=== PATIENT | male | born 1955 | race Two or more races ===

== ENCOUNTER 2019-04-12 05:28 | Inpatient (IN) | payer MEDICAID, OTHER ==
[2019-04-12] VITALS (38 sets, daily range): BP systolic 77–131; BP diastolic 46–76
[~2019-04-12] VITALS: Ht 177.8 cm; Wt 93.0 kg
--- NOTE | 2019-04-12 05:29 | NUR ---
BIBA FOR ALOC, PT NON RESPONSIVE. NOT BREATHING. ON AMBU BAG WHIE RESCUER BAGGING THE PT.
--- NOTE | 2019-04-12 05:37 | NUR ---
pt intubated successfully by dr warner. size: 7.5, 25 cm at lip
[2019-04-12] MEDS ORDERED: PROPOFOL 100 ML ONE (05:40)
--- NOTE | 2019-04-12 05:45 | NUR ---
VERBAL ORDER FOR PROPOFOL TO TITRATE PER PROTOCOL FROM DR PARKS. NOTED
[2019-04-12] MEDS: PROPOFOL 100 ML IV PRN ×3 (05:47→09:15)
--- NOTE | 2019-04-12 05:47 | NUR ---
PT STARTED ON PROPOFOL DRIP ORDERED BY DR. PARKS . STARTED AT 10MCG/KG/MIN BP: 174/102, HR:114,
--- NOTE | 2019-04-12 05:50 | NUR ---
PT ARRIVED TO ER, UNRESPONSIVE AND PT WAS ORALLY INTUBATED WITH A 7.5MM ETT @ 25CM LIP LINE... BILATERAL BREATH SOUNDS PRESENT, SYMMETRICAL CHEST RISE ALSO PRESENT, WITH GOOD COLOR CHANGE. PT WAS THEN PLACED ON MECH VECH R 18 VT 550 100%O2 5 PEEP. PT TOLERATING SETTING WELL, AMBU-BAG AT BEDSIDE, ALARMS ARE SET AND AUDIBLE, WITH VENT PLUGGED INTO REDOUT. PT TOLERATING SETTINGS WELL Addendum: 04/12/19 at 0600 by JA ASHTON RT Amended: Links added.
[2019-04-12] MEDS ORDERED: ETOMIDATE 2 MG/ML VIAL IV ONE ×2 (06:00→11:58)
[2019-04-12] MEDS ORDERED: PROPOFOL 100 ML IV PRN (06:00)
[2019-04-12] MEDS ORDERED: NALOXONE PREFILLED SYRINGE 2 MG/2 ML SYRINGE IV ONE (06:00)
[2019-04-12] MEDS ORDERED: IV NS 0.9% 1,000 ML BAG IV ONE (06:00)
--- NOTE | 2019-04-12 06:00 | NUR ---
urine collected and sent to the lab
[2019-04-12 06:06] LABS: BASOPHILS # (AUTO) 0.1 /CMM (0.0-0.2); LYMPHOCYTES # (AUTO) 1.8 /CMM (0.8-4.8); MONOCYTES # (AUTO) 2.3 /CMM (0.1-1.30)
[2019-04-12 06:09] LABS: APPEARANCE,URINE Clear (CLEAR); BILIRUBIN,URINE MODERATE (NEGATIVE); BLOOD, URINE Small Ery/uL (NEGATIVE); COLOR,URINE Dark (YELLOW); KETONES,URINE Trace (NEGATIVE); LEUKOCYTE ESTERASE ,URINE Negative (NEGATIVE); NITRITE, URINE Negative (NEGATIVE); PROTEIN,URINE 100 mg/dl (NEGATIVE); UGLUCOSE 100 MG/DL mg/dL (NEGATIVE)
[2019-04-12 06:14] LABS: BASOPHILS % (AUTO) 0.3 % (0.0-2.0); HEMATOCRIT 53 % (39-51); HEMOGLOBIN 18.2 g/dL (13.5-17.5); MEAN CORPUSCULAR HGB CONC 35 g/dl (31.0-36.0); MEAN CORPUSCULAR VOLUME 89 fL (80-96); MONOCYTES % (AUTO) 9.1 % (2.0-12.0); NEUTROPHILS # (AUTO) 21.6 /CMM (1.8-8.9); NEUTROPHILS % (AUTO) 83.6 % (43.0-81.0); PLATELET COUNT (AUTO) 376 /CMM (150-450); WHITE BLOOD COUNT (AUTO) 25.8 K/uL (4.3-11.0)
[2019-04-12 06:17] LABS: CALCIUM, SERUM 10.1 mg/dL (8.5-10.1); CARBON DIOXIDE 22 mmol/L (21-32); CHLORIDE 105 mmol/L (98-107); GLUCOSE 225 mg/dL (74-106); POTASSIUM 3.8 mmol/L (3.5-5.1); SODIUM SERUM 147 mmol/L (136-145); UREA NITROGEN, BLOOD 36 mg/dL (7-18)
[2019-04-12 06:18] LABS: ABG BASE EXCESS -6.7 mmol/L; ABG OXYGEN SATURATION 99.3 % (92.0-98.5); ABG PCO2 44.9 mmHg (35.0-45.0); ABG PH 7.271 (7.350-7.450); ABG PO2 543.4 mmHg (75.0-100.0); AaDO2 124.7 mmHg; COHb 0.2 % (0.5-1.5); MetHb 0.7 % (0.0-1.5); O2Hb 98.4 % (94.0-97.0); PEEP,BG 5 cm H2O; SITE, ABG Right Radial; VT, ABG 550 mL
--- NOTE | 2019-04-12 06:22 | NUR ---
ABG RESULTS NOT TRANSFERRING DUE TO ERROR IN BEHALF OF ADMITTING ABG RESULTS ARE FOLLOWED: PH =7.27 PCO2 =44.9 PO2 =543.4 HCO3 =20.2 ON THE FOLLOWING MECH VENT SETTINGS OF: AC R 18 VT 550 O2 100% PEEP +5
[2019-04-12 06:23] LABS: ALANINE AMINOTRANSFERASE 29 U/L (12-78); ALCOHOL, BLOOD < 3 mg/dL (0-0); ALKALINE PHOSPHATASE 84 U/L (46-116); ASPARTATE AMINOTRANSFERASE 50 U/L (15-37); BILIRUBIN,DIRECT 0.2 mg/dL (0.0-0.2); BILIRUBIN,TOTAL 0.8 mg/dL (0.2-1.0); SALICYLATE 2.8 mg/dL (2.8-20.0); TOTAL PROTEIN, SERUM 8.8 g/dL (6.4-8.2)
[2019-04-12] MEDS ORDERED: NALOXONE PREFILLED SYRINGE 2 MG/2 ML SYRINGE ONE (06:29)
[2019-04-12] MEDS ORDERED: PIPERACILLIN /TAZOBACTAM 3.375 G in IV D5W 50 ML IV ONE (06:30)
--- NOTE | 2019-04-12 06:35 | NUR ---
RECTAL TEMP: 99.2. AWARE W/ NNO
--- NOTE | 2019-04-12 06:51 | NUR ---
PT IN BED . INTUBATED . ON PROPOFOL DRIP. REMAINED COMFORTABLE. VSS. WILL CONT TO MONITOR.
--- NOTE | 2019-04-12 06:54 | NUR ---
NURS SUP CALLED FOR ICU BED
[2019-04-12] MEDS ORDERED: IV NS 0.9% 1,000 ML IV PRN ×2 (06:56→09:00)
[2019-04-12] MEDS ORDERED: ONDANSETRON HCL/PF 4 MG/2 ML VIAL IVP PRN (07:00)
[2019-04-12] MEDS ORDERED: HYDROMORPHONE INJ 2 MG/ML DISP.SYRIN IV PRN (07:00)
[2019-04-12 07:06] LABS: BACTERIA,URINE None seen /HPF (None Seen); SQUAMOUS EPITHELIAL CELL,UR Few /HPF (None Seen); WBC,URINE NONE SEEN /HPF (0-3)
[2019-04-12] MEDS ORDERED: METF-440 PO (07:18)
[2019-04-12] MEDS ORDERED: LISI-607 PO (07:18)
[2019-04-12] MEDS ORDERED: ALBUTEROL FS 2.5 MG/3 ML VIAL.NEB NEB PRN (07:30)
[2019-04-12] MEDS ORDERED: ASPIRIN 300 MG/SUPP.RECT RC ONE (07:30)
--- NOTE | 2019-04-12 07:36 | NUR ---
RECEIVED REPORT FROM JUN ANDERSON, PT IS AAOX0, ON MECH VENT, WITH ONGOING PROPOFOL TITRATE TO EFFECT, V/S STABLE, WILL CONTINUE TO MONITOR, AWAITING BED FOR PT TRANSFER TO FLOOR.
--- NOTE | 2019-04-12 07:53 | NUR ---
room 252 icu
--- NOTE | 2019-04-12 08:30 | NUR ---
ICU/RN: ADMISSION NOTE RECEIVED REPORT FROM ER NURSE RAMIRO. PT TRANSPORTED VIA GURNEY TO ROOM 252. UNABLE TO ASSESS NEURO STATUS, PT SEDATED. PT INTUBATED, ETT 7.5 25 CM AT THE LIP, ON VENT SETTINGS ORDERED BY . PIV PATENT AND INTACT, DIPRIVAN INFUSING AT 10MCG/KG/MIN. PT SINUS ON TELE. NG TUBE IN PLACE. WILL CONTINUE LIS. CHUNG CATH IN PLACE, DRAINING SHEBA URINE. PT CURRENTLY NPO. ORDERS RECEIVED FOR PICC LINE. AWAITING PLACEMENT. PT ON BILATERAL WRIST RESTRAINTS, ASSESSED PER PROTOCOL. SEIZURE PRECAUTION. ALL NEEDS WILL BE ATTNEDE TO, SAFETY MEASURES TAKEN, BED IN LOW POSITION, SIDE RAILS UP, CALL LIGHT WITHIN REACH. WILL CONTINUE CARE. POSSIBLE SUICIDE RISK, WILL MONITOR CLOSELY.
--- NOTE | 2019-04-12 08:35 | NUR ---
REPORT GIVEN TO RN RP FOR KYREE, WITH ONGOING IV PROPOFOL TITRATE TO EFFECT.
[2019-04-12] MEDS ORDERED: LORAZEPAM INJ 2 MG/ML VIAL IV STA (08:40)
--- NOTE | 2019-04-12 08:43 | NUR ---
LACTIC ACID RESULT 7.0, RELAYED TO ICU NURSE.
[2019-04-12 09:00] LABS: LYMPHOCYTES % (MANUAL) 5 % (16-48); MONOCYTES % (MANUAL) 9 % (0-11.0); NEUTROPHILS % (MANUAL) 86 (42-76)
[2019-04-12] MEDS ORDERED: ASPIRIN 600 MG/SUPP.RECT RC ONE (09:00)
[2019-04-12] MEDS ORDERED: VANCOMYCIN 1.25 GM in IV D5W 500 ML IV SCH ×4 (09:00)
[2019-04-12] MEDS ORDERED: HEPARIN SODIUM, PORCINE 5000 UNITS/1 ML VIAL SQ SCH (09:00)
[2019-04-12] MEDS ORDERED: IBUP-1955 PO (09:37)
[2019-04-12] MEDS ORDERED: BUPR-51 PO (09:37)
[2019-04-12] MEDS ORDERED: VENL150C58 PO (09:37)
[2019-04-12] MEDS ORDERED: BACL10TA PO (09:37)
[2019-04-12] MEDS ORDERED: LAMO200T PO (09:37)
--- NOTE | 2019-04-12 09:45 | NUR ---
ICU/RN: PT HAD SEIZURE. ONE TIME ATIVAN ADMINISTERED, WITNESSES BY NEURO ENTREPRENEURIAL FINANCE PROFESSOR. SEIZURE PRECAUTIONS TAKEN.
[2019-04-12] MEDS: FAMOTIDINE/PF INJ 20 MG/2 ML VIAL IV SCH ×2 (10:06→22:01)
[2019-04-12 10:15] LABS: ACETAMINOPHEN 0 ug/ml (10-30)
[2019-04-12] MEDS ORDERED: LEVETIRACETAM (500MG) 1,000 MG in IV NS 0.9% 100 ML IV ONE (11:00)
[2019-04-12] MEDS: SODIUM ACETATE IV PRN ×2 (11:01→19:41)
[2019-04-12] MEDS: D5 IV PRN ×2 (11:01→19:41)
[2019-04-12] MEDS: NACL IV PRN ×2 (11:01→19:41)
--- NOTE | 2019-04-12 11:22 | NUR ---
ICU/RN: REPORT ENDORSED TO JUN PURVIS. CT SCAN PENDING. PT MUST GO WHEN STABLE. ALL NEEDS ATTENDED TO, SAFETY MEASURES TAKEN, BED IN LOW POSITION, SIDE RAILS UP, SEIZURE PRECAUTIONS TAKEN.
[2019-04-12] MEDS ORDERED: SUCCINYLCHOLINE CHLORIDE 20 MG/ML VIAL IV ONE (11:58)
--- NOTE | 2019-04-12 12:30 | NUR ---
FAMILY AT BEDSIDE. PATIENT LUCIAN WEBB [phone] AND SISTER IN LAW RIZWANA LOZADA [phone] Addendum: 04/12/19 at 1727 by YANIV HERNANDEZ RN PER PATIENT LUCIAN WEBB OKAY FOR MEDICAL STAFF TO GIVE INFORMATION AND SPEAK WITH HER SISTER RIZWANA LOZADA WITH ANY AND ALL UPDATES ON PATIENT CONDITION.
--- NOTE | 2019-04-12 12:45 | NUR ---
NOTIFIED AGUILAR PER POISON CONTROL THEY ARE RECOMMENDING Q1H ACCUCHECKS DUE TO PATIENT POSSIBILITY OF TAKING GLIMIPERIDE FOR DIABETES AND MAY HAVE REFRACTORY HYPOGLYCEMIA. PER ADJUSTER ARBITRATOR OK TO ORDER Q1H ACCUCHECKS. REGENERATOR OPERATOR AT BEDSIDE.
[2019-04-12] MEDS: PIPERACILLIN /TAZOBACTAM 3.375 G in IV D5W 100 ML IV SCH ×2 (12:51→20:49)
[2019-04-12] MEDS ORDERED: PIPERACILLIN /TAZOBACTAM 3.375 G in IV D5W 50 ML IV SCH (13:00)
[2019-04-12] MEDS: BLOOD SUGAR DIAGNOSTIC 1 EACH STRIP IN SCH ×11 (13:01→23:54)
[2019-04-12] MEDS ORDERED: FEE PK DOSING 1 MIN EA MC ONE (13:34)
--- NOTE | 2019-04-12 15:00 | NUR ---
PER DR PINEDA PLEASE REORDER EEG FOR TOMORROW AND UP THE DOSAGE OF KEPPRA TO 1000MG Q12HRS.
--- NOTE | 2019-04-12 17:32 | NUR ---
PER AND PATIENT SISTER IN LAW PATIENT TEXTED HIS AT 330PM ON 04/11 AND TOLD HER HE TOOK THE MEDICATIONS AND STARTED GIVING HER LOCATIONS OF HIS PERSONAL PROPERTY AND PASSCODES TO HIS EMAILS ECT. PER PATIENT HAS A HISTORY OF STATING SUICIDAL IDEATION. CALLED AT 5PM WHERE PATIENT LIVES AND HAD SOMEONE CHECK ON HIM AND "HE WAS SLEEPING" SO SHE THOUGHT HE WAS OKAY. THIS AM WHEN PATIENT DID NOT WAKE UP 911 WAS CALLED.
--- NOTE | 2019-04-12 17:53 | NUR ---
PER POISON CONTROL PLEASE MONITOR PATIENT LIVER FX WITH CMP AND TOX LEVEL. PENDING UPDATED LABS
[2019-04-12 18:46] LABS: HEMOGLOBIN 14.1 g/dL (13.5-17.5)
--- NOTE | 2019-04-12 18:50 | NUR ---
PATIENT FEELS HOT TO TOUCH. CORE TEMP MONITOR APPLIED AND READS 100.6 COOLING MEASURES INITIATED. ICE PACKS APPLIED. ROOM COOLED. WILL MONITOR
--- NOTE | 2019-04-12 19:25 | NUR ---
CARE ENDORSED TO JUN ORLANDO FOR KYREE. PATIENT TOLERATING VENT. NO NECESSITY FOR RESTRAINTS PATIENT NON RESPONSIVE. DR PINEDA AWARE AND PENDING ANOTHER EEG TOMORROW MORNING. PATIENT ON COOLING MEASURES FOR 100.6 TEMP. IV SITE C/D/I/P AND IVF PER MD ORDER. PATIENT NGT TO LIS AND WITHOUT S.S BLEEDING; ONLY GREEN OUTPUT NOTED. SKIN, SAFETY, ASPIRATION PRECAUTIONS IN PLACE AND MONITORED.
--- NOTE | 2019-04-12 19:59 | NUR ---
DESKTOP SPECIALIST. INITIAL ASSESSMENT. RECEIVED THE PT REST ON THE BED. ORALLY INTUBATED, WITH OUT DIPRIVAN. PT IS NOT RESPONDING.OBTUNDED. ETT 7.5CM,LIP 25CM,AC 18,TV 550,FIO2 50%. SAT 98%. NO ACUTE DISTRESS NOTED. FOREST PRODUCTS TEACHER SHOWING NSR. IV RT UPPER ARM PICC LINE .IVF D5 1/2NS IN SODIUM ACCECITE 50MEQ @ 125ML/H. NGT INTACT. LOW INTERMITTENT SUCTION
[2019-04-12 20:12] LABS: ALBUMIN 3.6 g/dL (3.4-5.0); BILIRUBIN,TOTAL 0.7 mg/dL (0.2-1.0); CREATININE 1.7 mg/dL (0.6-1.3); POTASSIUM 3.6 mmol/L (3.5-5.1); TOTAL PROTEIN, SERUM 6.7 g/dL (6.4-8.2)
[2019-04-12] MEDS ORDERED: LEVETIRACETAM (500MG) 1,000 MG in IV NS 0.9% 100 ML IV SCH (21:00)
[2019-04-12] MEDS ORDERED: LEVETIRACETAM (500MG) 500 MG in IV NS 0.9% 100 ML IV SCH (21:00)
--- NOTE | 2019-04-12 22:25 | NUR ---
FINISHING AND SHIPPING SUPERVISOR.PT DO"NT HAVE GAG REFLEX AND PAIN FULL STIMULI
[2019-04-13] VITALS (41 sets, daily range): BP systolic 129–171; BP diastolic 65–91
[2019-04-13] MEDS: BLOOD SUGAR DIAGNOSTIC 1 EACH STRIP IN SCH ×11 (00:52→18:00)
[2019-04-13] MEDS: SODIUM ACETATE IV PRN (03:03)
[2019-04-13] MEDS: NACL IV PRN (03:03)
[2019-04-13] MEDS: D5 IV PRN (03:03)
--- NOTE | 2019-04-13 03:08 | NUR ---
horticultural specialty grower. am care. oral care, bed bath given. linen changed. remaining same ivf running, ngt low intermittent suction, hob elevated, npo, temperature is 100. fc patent. urine draining. turn and reposition q2h. will continue to monitor vitals.
[2019-04-13] MEDS: PIPERACILLIN /TAZOBACTAM 3.375 G in IV D5W 100 ML IV SCH ×3 (03:22→20:40)
[2019-04-13 04:39] LABS: BASOPHILS % (AUTO) 0.2 % (0.0-2.0); HEMATOCRIT 39 % (39-51); HEMOGLOBIN 13.8 g/dL (13.5-17.5); LYMPHOCYTES # (AUTO) 0.8 /CMM (0.8-4.8); LYMPHOCYTES % (AUTO) 8.6 % (20.0-44.0); MEAN CORPUSCULAR HGB CONC 36 g/dl (31.0-36.0); MEAN CORPUSCULAR VOLUME 89 fL (80-96); MONOCYTES # (AUTO) 0.9 /CMM (0.1-1.30); MONOCYTES % (AUTO) 8.9 % (2.0-12.0); NEUTROPHILS # (AUTO) 7.9 /CMM (1.8-8.9); NEUTROPHILS % (AUTO) 82.3 % (43.0-81.0); PLATELET COUNT (AUTO) 205 /CMM (150-450); RED BLOOD CELL COUNT(AUTO) 4.38 MIL/uL (4.5-6.0); WHITE BLOOD COUNT (AUTO) 9.6 K/uL (4.3-11.0)
[2019-04-13 04:56] LABS: ALBUMIN 3.3 g/dL (3.4-5.0); BILIRUBIN,TOTAL 0.6 mg/dL (0.2-1.0); CREATININE 1.2 mg/dL (0.6-1.3); MAGNESIUM 1.8 mg/dL (1.8-2.4); PHOSPHORUS 2.3 mg/dL (2.5-4.9); POTASSIUM 3.5 mmol/L (3.5-5.1); TOTAL PROTEIN, SERUM 6.5 g/dL (6.4-8.2)
[2019-04-13] MEDS: LORAZEPAM INJ 2 MG/ML VIAL IV PRN ×3 (07:03→15:43)
--- NOTE | 2019-04-13 07:03 | NUR ---
agricultural science professor. pt noted seizure less than 2 minutes. ativan given per ordered.
--- NOTE | 2019-04-13 07:25 | NUR ---
received report on patient from JUN Zuniga. patient just had a tonic clonic seizure lasting under 2 minutes with prn ativan given as ordered; message left to dr casillas. Patient tolerating vent without distress. IVF per MD order and iv sites c/d/i/p. PICC line with good blood return. patient core temp continues 100.0-100.5 and is actively sweating. cooling measures initiated and fan placed in room. dvt pumps in place. bp stable. patient continues with pupil reflexes positive however no gag, cough reflexes, no movement to painful stimuli. skin, safety, aspiration precautions in place and monitoring
--- NOTE | 2019-04-13 07:30 | NUR ---
per report patient had a breakthrough seizure lasting just under 2 minutes and 2 mg ativan as ordered given and per report creative technologist unable to complete eeg until 6pm today. Notified dr Coleman. per MD please increase Keppra IV to 1500 mg q12h and md would like to transfer patient to higher level of care for continuous EEG monitoring.
[2019-04-13] MEDS ORDERED: phenytoin SODIUM IV 1,000 MG in IV NS 0.9% 100 ML IV ONE (08:00)
[2019-04-13] MEDS: LEVETIRACETAM (500MG) 1,500 MG in IV NS 0.9% 100 ML IV SCH ×2 (08:04→20:40)
[2019-04-13] MEDS: FAMOTIDINE/PF INJ 20 MG/2 ML VIAL IV SCH ×2 (08:17→20:39)
[2019-04-13 08:44] LABS: ABG BASE EXCESS 1.8 mmol/L; ABG OXYGEN SATURATION 98.7 % (92.0-98.5); ABG PCO2 40.7 mmHg (35.0-45.0); ABG PH 7.428 (7.350-7.450); ABG PO2 187.6 mmHg (75.0-100.0); AaDO2 123.1 mmHg; COHb 0.3 % (0.5-1.5); MetHb 0.9 % (0.0-1.5); O2Hb 97.5 % (94.0-97.0); SITE, ABG Left Radial; VENT MODE, BG AC 18 550 50%
--- NOTE | 2019-04-13 08:59 | NUR ---
0830: PATIENT IS NOW BREATHING OVER VENT 25 RR/ MIN. CHECKED PATIENT PUPILS; PERLLA, PATIENT NOW HAS A POSITIVE GAG AND COUGH REFLEX. BITING ON ETT; BITE BLOCK PLACED BY RT, PATIENT MOVING ALL EXTREMITIES AND GRIMACING TO PAIN. NO FOLLOWING OF COMMANDS AND PURPOSEFULLY CLOSING EYES SHUT. 0856: PATIENT NOTED WITH BLE TWITCHING AND CLENCHING OF HANDS/EXTENSION OF BUE. 2MG ATIVAN GIVEN FOR SEIZURE LASTING 45 SEC[address]DS PER ORDER OF DR PINEDA. PATIENT BEGAN SEIZING DURING ROUNDING OF DR PINEDA AND CEASED IMMEDIATELY AFTER ATIVAN ADMIN. PER DR PINEDA PLEASE DC DIPRIVAN AND IF PATIENT REQUIRES SEDATION START VERSED GTT FOR SEDATION. 0859: DR PINEDA AT BEDSIDE UPDATING PATIENT THERESE ZAMORANO. Addendum: 04/13/19 at 0949 by YANIV HERNANDEZ RN ok to dc low intermittent suction per dr zheng. no s/s bleeding. gastric fluid output is green
[2019-04-13] MEDS ORDERED: DEXTROSE 50%-WATER 50 ML DISP.SYRIN IV PRN (09:00)
--- NOTE | 2019-04-13 09:00 | NUR ---
restraints applied as patient able to move bilateral upper extremities and chief embalmer strength strong. bilateral wrist restraints applied for prevention of ett removal. son at bedside educated and agreeable.
--- NOTE | 2019-04-13 09:26 | NUR ---
PER DR PINEDA OK TO HOLD OFF ON TRANSFER PATIENT WITH SLIGHT IMPROVEMENT; PENDING ANOTHER EEG TODAY
[2019-04-13] MEDS: IV D5/0.45 NACL 1,000 ML IV PRN ×2 (11:15→21:47)
[2019-04-13] MEDS: INSULIN REGULAR, HUMAN 100 UNIT/ML 3 ML VIAL SQ PRN ×2 (11:41→18:06)
[2019-04-13] MEDS: PHENYTOIN SODIUM IV 50 MG/ML VIAL IV SCH ×2 (13:20→20:39)
[2019-04-13] MEDS ORDERED: POTASSIUM PHOSPHATE MM 7.5 MMOL in IV D5W 100 ML IV SCH (14:00)
--- NOTE | 2019-04-13 15:50 | NUR ---
1525: dev poison control called to follow up on patient recommending cmp and ck lab checks now. notified dr zheng and kim to order per md. dr casillas contacted and notified patient with another witnessed seizure lasting 3 minute 30 seconds at 1515. 2 mg ivp ativan given per order and patient ceased seizure activity. per dr casillas give 100mg dilantin ivp now 1545: patient with another witnessed seizure lasting 4 minutes. another 2mg ivp ativan given per order.
[2019-04-13] MEDS ORDERED: NS 0.9% IV ONE ×4 (16:00)
[2019-04-13] MEDS ORDERED: PHENYTOIN SODIUM IV ONE ×4 (16:00)
[2019-04-13] MEDS ORDERED: PHENYTOIN SODIUM IV 50 MG/ML VIAL IV ONE (16:00)
--- NOTE | 2019-04-13 16:17 | NUR ---
notified dr lema patient with another seizure and poison control recommending benzos for medication induced seizures.
--- NOTE | 2019-04-13 16:23 | NUR ---
per dr casillas please start patient on diprivan for breakthrough seizures. ok to start now before eeg Addendum: 04/13/19 at 1642 by YANIV HERNANDEZ RN per start diprivan to sedate patient to stop breakthrough seizures
[2019-04-13] MEDS: PROPOFOL 100 ML IV PRN (16:26)
[2019-04-13 16:37] LABS: ALBUMIN 3.3 g/dL (3.4-5.0); BILIRUBIN,TOTAL 0.6 mg/dL (0.2-1.0); CALCIUM, SERUM 8.4 mg/dL (8.5-10.1); POTASSIUM 3.2 mmol/L (3.5-5.1); TOTAL PROTEIN, SERUM 6.5 g/dL (6.4-8.2)
--- NOTE | 2019-04-13 16:42 | NUR ---
diprivan started per dr casillas order to sedate patient s/t continued breakthrough seizures. patient grimaces to light pain. and withdraws from painful stimuli.
--- NOTE | 2019-04-13 17:45 | NUR ---
patient with low grade temp 100.5. fam on, ice packs applied will monitor
--- NOTE | 2019-04-13 18:52 | NUR ---
all due meds given, patient sedated on diprivan to assist with termination of seizures; at this time no s/s seizure activity. patient tolerating vent without distress. nsr tele. urine output increased with 1200 ml output today. ngt clamped. iv sites c/d/i/p. picc line with good blood return present. patient continues on cooling measures and temp decreasing. patient continues in restraints to protect from airway compromise from pulling at ett. skin, safety, aspiration precautions in place and monitored throughout the day.
[2019-04-14] VITALS (50 sets, daily range): BP systolic 128–166; BP diastolic 72–92
[2019-04-14] MEDS: BLOOD SUGAR DIAGNOSTIC 1 EACH STRIP IN SCH ×5 (01:08→23:00)
[2019-04-14] MEDS: INSULIN REGULAR, HUMAN 100 UNIT/ML 3 ML VIAL SQ PRN ×5 (01:13→23:00)
[2019-04-14] MEDS: PROPOFOL 100 ML IV PRN ×4 (02:33→23:07)
[2019-04-14 05:02] LABS: BASOPHILS % (AUTO) 0.3 % (0.0-2.0); EOSINOPHILS % (AUTO) 0.1 % (0.0-6.0); HEMATOCRIT 40 % (39-51); LYMPHOCYTES # (AUTO) 0.9 /CMM (0.8-4.8); LYMPHOCYTES % (AUTO) 10.3 % (20.0-44.0); MEAN CORPUSCULAR HGB CONC 35 g/dl (31.0-36.0); MEAN CORPUSCULAR VOLUME 89 fL (80-96); MONOCYTES # (AUTO) 0.8 /CMM (0.1-1.30); MONOCYTES % (AUTO) 8.6 % (2.0-12.0); NEUTROPHILS # (AUTO) 7.2 /CMM (1.8-8.9); NEUTROPHILS % (AUTO) 80.7 % (43.0-81.0); PLATELET COUNT (AUTO) 206 /CMM (150-450); RED BLOOD CELL COUNT(AUTO) 4.45 MIL/uL (4.5-6.0); WHITE BLOOD COUNT (AUTO) 8.9 K/uL (4.3-11.0)
[2019-04-14] MEDS: PIPERACILLIN /TAZOBACTAM 3.375 G in IV D5W 100 ML IV SCH ×3 (05:02→20:15)
[2019-04-14] MEDS: PHENYTOIN SODIUM IV 50 MG/ML VIAL IV SCH ×3 (05:22→21:26)
[2019-04-14] MEDS: IV D5/0.45 NACL 1,000 ML IV PRN ×2 (08:29→19:31)
[2019-04-14] MEDS: FAMOTIDINE/PF INJ 20 MG/2 ML VIAL IV SCH ×2 (10:00→21:26)
[2019-04-14] MEDS: LEVETIRACETAM (500MG) 1,500 MG in IV NS 0.9% 100 ML IV SCH ×2 (10:00→21:26)
[2019-04-14] MEDS: ENOXAPARIN SODIUM 40 MG/0.4 ML DISP.SYRIN SQ SCH (10:01)
--- NOTE | 2019-04-14 20:16 | NUR ---
CAP LINING MACHINE OPERATOR NOTES RECEIVED PT ON BED. SEDATED. ON DIPRIVAN @ 25MCG/HR. [facility] SATUR[facility] WELL, NO RESPIRATORY DISTRESS NOTED. IV ACCESS ON ARCELIA PICC LINE WITH D5 1/2 NS RUNNING @ 100CC/HR, AND DIP @ 25MCG/HR. HEAD OF BED ELEVATED. SIDE RAILS UP. CALL LIGHT WITHIN REACH. BED ALARM ON. WILL CONTINUE TO MONITOR PT CLOSELY.
[2019-04-15] VITALS (45 sets, daily range): BP systolic 117–152; BP diastolic 62–92
[2019-04-15] MEDS: ACETAMINOPHEN 650 MG/SUPP.RECT RC PRN ×3 (00:38→17:48)
--- NOTE | 2019-04-15 01:07 | NUR ---
HEADING AND PRIMING OPERATOR NOTES ICE BATH GIVEN.
[2019-04-15] MEDS: IV D5/0.45 NACL 1,000 ML IV PRN (04:39)
[2019-04-15] MEDS: PIPERACILLIN /TAZOBACTAM 3.375 G in IV D5W 100 ML IV SCH ×3 (04:39→20:22)
[2019-04-15] MEDS: PHENYTOIN SODIUM IV 50 MG/ML VIAL IV SCH ×3 (04:42→22:01)
[2019-04-15] MEDS: BLOOD SUGAR DIAGNOSTIC 1 EACH STRIP IN SCH ×3 (05:02→17:18)
[2019-04-15] MEDS: INSULIN REGULAR, HUMAN 100 UNIT/ML 3 ML VIAL SQ PRN ×3 (05:03→17:18)
[2019-04-15 05:19] LABS: CALCIUM, SERUM 8.1 mg/dL (8.5-10.1); CREATININE 0.7 mg/dL (0.6-1.3)
[2019-04-15 05:35] LABS: POTASSIUM 2.5 mmol/L (3.5-5.1)
--- NOTE | 2019-04-15 05:52 | NUR ---
SUPERVISOR ASSEMBLY AND PACKING NOTES INFORMED DR ROMO REGARDING PT POTASSIUM OF 2.[address] ROMO HE IS NOT THE PRIMARY DOCTOR . CALLED [facility] FOR ORDERS. PER RATNA ADDICTION PROFESSIONAL. 60 MEQ IV POTASSIUM TO RUN FOR 6 HOURS.
[2019-04-15] MEDS ORDERED: POTASSIUM CHLORIDE 10 MEQ/50 ML PREMIXED IVPB FOR PERIPHERAL LINE IV ONE ×2 (06:00)
[2019-04-15] MEDS: PROPOFOL 100 ML IV PRN (06:09)
[2019-04-15] MEDS: POTASSIUM CL. PREMIX PERIPHER. 50 ML IV SCH ×6 (06:16→11:21)
--- NOTE | 2019-04-15 06:23 | NUR ---
RT NOTES END OF SHIFT. PT ON VENT WITH 7.5 ETT PROPERLY SECURED AT 25 CM KARMA. CHEST RISE BILAT. SX Q2 AND PRN FOR MOD THICK PALE YELLOW SECRETIONS. VENT/ ALARMS WELL FUNCTIONING WITH AMB BAG AT BEDSIDE. NO CHANGES IN PT STATUS.
--- NOTE | 2019-04-15 07:00 | NUR ---
SCRUBBER MACHINE TENDER NOTES RECEIVED PT ON BED, INTUBATED, SEDATED. ON DIPRIVAN @ 25MCG/KG/HR, ON ET TUBE 7.5/25 - [facility] VENT SETTING SATURATING WELL, NO RESPIRATORY DISTRESS NOTED. IV ACCESS ON ARCELIA PICC LINE WITH D5 1/2 NS RUNNING @ 100CC/HR. PT IS NPO AT THIS TIME, HEAD OF BED ELEVATED. SIDE RAILS UP. CALL LIGHT WITHIN REACH. BED ALARM ON. BED LOCKED AND IN LOWEST POSITION, WILL CONTINUE TO MONITOR PT CLOSELY.
--- NOTE | 2019-04-15 07:23 | NUR ---
ENVIRONMENTAL FIELD SERVICES TECHNICIAN NOTES NO ACUTE CHANGES NOTED DURING THE SHIFT. NO RESPIRATORY DISTRESS NOTED. BP WNL. POTASSIUM ONE BAG REPLACED. ENDORSE TO AM NURSE FOR FNS CONSULT. ENDORSE TO THE AM NURSE FOR CONTINUITY OF CARE.
--- NOTE | 2019-04-15 07:37 | NUR ---
PT. RECEIVED ON VENT SUPPORT VIA ET TUBE SIZE 7.5 SECURED @ 25 CM LIP LINE WITH PARAMETERS BELOW: AC 18 VT 500 FIO2 40% NO PEEP BREATH SOUNDS CLEAR BILATERAL, WITH AMBU BAG @ BEDSIDE. Addendum: 04/15/19 at 0741 by JIMENA PADILLA RT Amended: Links added.
[2019-04-15] MEDS: FAMOTIDINE/PF INJ 20 MG/2 ML VIAL IV SCH ×2 (08:21→22:01)
[2019-04-15] MEDS: ENOXAPARIN SODIUM 40 MG/0.4 ML DISP.SYRIN SQ SCH (08:22)
[2019-04-15] MEDS: LEVETIRACETAM (500MG) 1,500 MG in IV NS 0.9% 100 ML IV SCH ×2 (09:17→22:01)
--- NOTE | 2019-04-15 10:15 | NUR ---
RN NOTES PT OFF SEDATION PER DR PINEDA , PT TRIES TO OPENS HIS EYES PER VERBAL STIMULI, FOLLOW SIMPLE COMMANDS, DR LAUREN NOTIFED , CONTINUE TO MONITOR .
--- NOTE | 2019-04-15 12:00 | NUR ---
RN NOTES ID LITHOSTRIPPER NOTIFED REGARDING T=100.6.
[2019-04-15] MEDS: GLUCERNA 1.2 1,000 ML BOTTLE NG PRN (13:16)
[2019-04-15] MEDS: IV NS 0.9% 1,000 ML IV PRN (13:25)
--- NOTE | 2019-04-15 14:00 | NUR ---
RN NOTES PT IS MORE AWAKE, FOLLOW SIMPLE COMMANDS. CONTINUE TO MONITOR .
[2019-04-15 14:31] LABS: BASOPHILS % (AUTO) 0.3 % (0.0-2.0); HEMATOCRIT 44 % (39-51); HEMOGLOBIN 15.7 g/dL (13.5-17.5); LYMPHOCYTES # (AUTO) 0.9 /CMM (0.8-4.8); LYMPHOCYTES % (AUTO) 8.6 % (20.0-44.0); MEAN CORPUSCULAR HGB CONC 36 g/dl (31.0-36.0); MEAN CORPUSCULAR VOLUME 86 fL (80-96); MONOCYTES % (AUTO) 9.2 % (2.0-12.0); NEUTROPHILS # (AUTO) 8.9 /CMM (1.8-8.9); NEUTROPHILS % (AUTO) 81.9 % (43.0-81.0); PLATELET COUNT (AUTO) 263 /CMM (150-450); RED BLOOD CELL COUNT(AUTO) 5.13 MIL/uL (4.5-6.0); WHITE BLOOD COUNT (AUTO) 10.9 K/uL (4.3-11.0)
[2019-04-15 14:42] LABS: ALBUMIN 3.2 g/dL (3.4-5.0); BILIRUBIN,TOTAL 0.8 mg/dL (0.2-1.0); CALCIUM, SERUM 8.7 mg/dL (8.5-10.1); CREATININE 0.8 mg/dL (0.6-1.3); POTASSIUM 3.4 mmol/L (3.5-5.1); TOTAL PROTEIN, SERUM 7.1 g/dL (6.4-8.2)
[2019-04-15 14:45] LABS: APPEARANCE,URINE CLEAR (CLEAR); BILIRUBIN,URINE NEGATIVE (NEGATIVE); BLOOD, URINE 3+ Ery/uL (NEGATIVE); COLOR,URINE YELLOW (YELLOW); KETONES,URINE TRACE (NEGATIVE); LEUKOCYTE ESTERASE ,URINE NEGATIVE (NEGATIVE); NITRITE, URINE NEGATIVE (NEGATIVE); PROTEIN,URINE TRACE mg/dl (NEGATIVE); UGLUCOSE 3+ mg/dL (NEGATIVE); UROBILINOGEN,URINE 0.2 EU/dL (0.2)
[2019-04-15 15:05] LABS: BACTERIA,URINE None seen /HPF (None Seen); RBC,URINE 21-50 /HPF (0-2); SQUAMOUS EPITHELIAL CELL,UR Rare /HPF (None Seen); WBC,URINE 0-2 /HPF (0-3)
--- NOTE | 2019-04-15 15:49 | NUR ---
RN NOTES MANFRED TOOL SPECIALIST NOTIFED REGARDING K=3.4 , NEW ORDER RECEIVED .
[2019-04-15] MEDS ORDERED: POTASSIUM CHLORIDE 20 MEQ POWDER PACKET NG ONE (16:00)
--- NOTE | 2019-04-15 18:00 | NUR ---
RN NOTES SUPPORTIVE FAMILY AT THE BEDSIDE, FAMILY REQUESTING TO TALK TO DR MIRIAM MD NOTIFED. PT TOLERATING NGT FEEDING WELL, NO RESIDUAL NOTED, ORAL AND ET SUCTIONING DONE PRN THOUGH OUT THE SHIFT, WILL ENDOSE TO BOILER ASSISTANT OPERATOR NURSE FOR CONTINUITY OF CARE .
[2019-04-15 18:32] LABS: ABG BASE EXCESS 2.7 mmol/L; ABG OXYGEN SATURATION 97.4 % (92.0-98.5); ABG PCO2 37.6 mmHg (35.0-45.0); ABG PH 7.464 (7.350-7.450); ABG PO2 97.8 mmHg (75.0-100.0); AaDO2 144.2 mmHg; COHb 0.5 % (0.5-1.5); MetHb 0.6 % (0.0-1.5); O2Hb 96.3 % (94.0-97.0); PEEP,BG 0 cm H2O; SITE, ABG Right Radial; VT, ABG 500 mL
[2019-04-15 18:32] LABS: ABG BASE EXCESS 3.8 mmol/L; ABG OXYGEN SATURATION 97.7 % (92.0-98.5); ABG PCO2 34.5 mmHg (35.0-45.0); ABG PH 7.505 (7.350-7.450); ABG PO2 102.8 mmHg (75.0-100.0); AaDO2 142.7 mmHg; MetHb 0.6 % (0.0-1.5); O2Hb 97.1 % (94.0-97.0); SITE, ABG Right Radial; VENT MODE, BG AC 18 550 40%
--- NOTE | 2019-04-15 20:00 | NUR ---
WATER POLLUTION CONTROL TECHNICIAN NOTES RECEIVED PT. REPORT FROM AM RN RYLIE. RECEIVED PATIENT ON VENT SUPPORT VIA ET TUBE SIZE 7.5 SECURED @ 25 CM LIP LINE WITH PARAMETERS BELOW: AC 18 VT 500 FIO2 40% NO PEEP PATIENT IS SLEEPING ,FAMILY MEMBERS AT THE BEDSIDE,PATIENT HAS ON BOTH WRIST SOFT RESTRAINTS. ON DIRECTOR HAIR ST WITH FIVER OF 101F. TYLENOL IS ADMINISTERED AND COOLING MEASURES IMPLEMENTED. NGT IS IN PLACE WITH TF AT 30ML/HR WITH RESIDUAL OF 30ML. CHUNG CATH IS IN PLACE DRAINING ON GRAVITY. RIGHT UPPER ARM PICC LINE IS IN PLACE, INTACT, PATIENT WITH IVF OF 100ML/HR. RIGHT FOREARM G20 IV LINE IS IN PLACE WELL. CVP IS IN PLACE 2-6. ALL SAFETY MEASURES ARE IN PLACE, BED IS LOCKED, LOW POSITION, CALL LIGHT IN REACH.PATIENT IS TURNED AND REPOSITIONED. WILL CONTINUE TO MONITOR PATIENT CLOSELY.
[2019-04-16] VITALS (24 sets, daily range): BP systolic 127–176; BP diastolic 72–96
[2019-04-16] MEDS: BLOOD SUGAR DIAGNOSTIC 1 EACH STRIP IN SCH ×5 (00:45→23:45)
[2019-04-16] MEDS: IV NS 0.9% 1,000 ML IV PRN ×3 (00:47→21:27)
[2019-04-16] MEDS ORDERED: ACETAMINOPHEN LIQUID 160 MG/5 ML BOTTLE PO PRN (01:00)
[2019-04-16] MEDS: INSULIN REGULAR, HUMAN 100 UNIT/ML 3 ML VIAL SQ PRN ×5 (01:06→23:53)
[2019-04-16] MEDS ORDERED: ACETAMINOPHEN 650 MG/20.3 ML UDC NG PRN (01:30)
[2019-04-16] MEDS: PIPERACILLIN /TAZOBACTAM 3.375 G in IV D5W 100 ML IV SCH ×3 (04:59→20:49)
[2019-04-16] MEDS: PHENYTOIN SODIUM IV 50 MG/ML VIAL IV SCH ×3 (05:00→20:51)
[2019-04-16 05:03] LABS: BASOPHILS % (AUTO) 0.1 % (0.0-2.0); HEMATOCRIT 41 % (39-51); HEMOGLOBIN 14.5 g/dL (13.5-17.5); LYMPHOCYTES # (AUTO) 0.6 /CMM (0.8-4.8); LYMPHOCYTES % (AUTO) 5.5 % (20.0-44.0); MEAN CORPUSCULAR HGB CONC 36 g/dl (31.0-36.0); MEAN CORPUSCULAR VOLUME 87 fL (80-96); MONOCYTES % (AUTO) 8.8 % (2.0-12.0); NEUTROPHILS # (AUTO) 9.6 /CMM (1.8-8.9); NEUTROPHILS % (AUTO) 85.6 % (43.0-81.0); PLATELET COUNT (AUTO) 226 /CMM (150-450); RED BLOOD CELL COUNT(AUTO) 4.69 MIL/uL (4.5-6.0); WHITE BLOOD COUNT (AUTO) 11.3 K/uL (4.3-11.0)
[2019-04-16 05:07] LABS: CALCIUM, SERUM 8.9 mg/dL (8.5-10.1); CREATININE 0.7 mg/dL (0.6-1.3); MAGNESIUM 1.7 mg/dL (1.8-2.4); PHOSPHORUS 2.6 mg/dL (2.5-4.9); POTASSIUM 3.1 mmol/L (3.5-5.1)
[2019-04-16 08:16] LABS: ABG BASE EXCESS -0.6 mmol/L; ABG PCO2 28.1 mmHg (35.0-45.0); ABG PH 7.496 (7.350-7.450); ABG PO2 110.9 mmHg (75.0-100.0); COHb 0.3 % (0.5-1.5); MetHb 0.5 % (0.0-1.5); O2Hb 97.2 % (94.0-97.0); SITE, ABG Right Radial
[2019-04-16] MEDS: LEVETIRACETAM SOL (5 ML) 100 MG/ML UDC NG SCH ×2 (08:22→20:50)
[2019-04-16] MEDS: FAMOTIDINE/PF INJ 20 MG/2 ML VIAL IV SCH ×2 (08:22→20:48)
[2019-04-16] MEDS: ENOXAPARIN SODIUM 40 MG/0.4 ML DISP.SYRIN SQ SCH (08:23)
[2019-04-16] MEDS: POTASSIUM CHLORIDE 20 MEQ POWDER PACKET NG SCH ×2 (10:20→11:12)
[2019-04-16] MEDS: Magnesium 1GM/D5W 100ML PREMIX 100 ML IV SCH ×2 (10:20→11:12)
--- NOTE | 2019-04-16 10:59 | NUR ---
RN NOTE 0715: Received patient lethargic, easily arouse, able to track voices and follow simple commands. With ETT to vent, tolerated settings at this time. ARCELIA PICC intact. CVP reading 6 at this time. Off sedation. Lisa cath intact, noted with clear jose colored urine drained to BSD. ST 100's on the monitor, afebrile 98.9. Right NGT intact, feeding tolerated, will increment feeding as tolerated. LAYOUT TECHNICIAN restraints on for safety. 1040: S/E by Dr. Hurley, reviewed ABG, with order to place patient on Vt 450. Brother Blake at bedside, discussed the POC. 1055: No any significant changes noted at this time. K and Mg replacements ongoing, tolerated. Tolerated vent changes. Will continue to monitor.
--- NOTE | 2019-04-16 13:30 | NUR ---
RN NOTE Lizette, sister in law called and asking for update regarding patient's condition. Informed her, I can only give limited details via phone, advised to come personally or better to call family since I and MDs updated brother, Blake and patient's Piper at bedside a while ago. She asked me to transfer the call to charge nurse instead, informed CN.
--- NOTE | 2019-04-16 18:17 | NUR ---
RN NOTE Patient tolerated new vent changes. Noted with agitation at times, provided calm environment. Family at bedside, advised to make patient calm. Repositioned for comfort. Kept HOB elevated. Tolerated feeding goal.
[2019-04-16] MEDS: GLUCERNA 1.2 1,000 ML BOTTLE NG PRN (19:13)
[2019-04-16] MEDS: MORPHINE SULFATE INJ 2 MG/ML DISP.SYRIN IV PRN (20:00)
[2019-04-17] VITALS (25 sets, daily range): BP systolic 133–180; BP diastolic 59–109
[2019-04-17] MEDS: MORPHINE SULFATE INJ 2 MG/ML DISP.SYRIN IV PRN ×3 (02:01→22:21)
[2019-04-17] MEDS: PIPERACILLIN /TAZOBACTAM 3.375 G in IV D5W 100 ML IV SCH ×3 (03:48→20:20)
--- NOTE | 2019-04-17 04:02 | NUR ---
RT NOTES PATIENT WITH ET TUBE 7.5 @25CM LIP PATENT, AND SECURED. BILATERAL BREATH SOUNDS WITH EQUAL CHEST RISE. ALARMS ON AND AUDIBLE. AMBU BAG BY THE BEDSIDE. VENT PLUGGED IN TO RED OUTLET. SX MODERATE THICK YELLOW SECRETIONS. NO SOB NOTED AT THIS TIME. WILL CONTINUE TO MONITOR. Addendum: 04/17/19 at 0407 by JULIO CESAR SHRESTHA RT Amended: Links added.
--- NOTE | 2019-04-17 04:24 | NUR ---
2000 Received patient awake & alert. Oral ETT tube size 7.5 & 25 right lip patent and intact. ETT to ventilator with settings at: AC mode 18, TV 450 Fi02 30% PEEP of 5. Tolerating settings well. Sp02 of 97%. Will continue to monitor closely. 2400 Reassessment, condition stable. Oral ETT tube size 7.5 & 25 right lip patent and intact. ETT to ventilator with settings at: AC mode 18, TV 450 FI02 30% PEEP of 5. Tolerating settings well. Sp02 of 96%. Will continue to monitor closely. Tolerating NGT feeding well. HOB maintained elevated, aspiration precautions observed & maintained. 0400 Reassessment, condition stable. Oral ETT tube size 7.5 & 25 right lip patent and intact. ETT to ventilator with settings at: AC mode 18, TV 450 Fi02 30% PEEP of 5. Tolerating settings well. Sp02 of 96% Vital signs stable throughout shift. Tolerating feeding well. Sp02 of 96% Will continue to monitor closely. NGT remains patent and intact. HOB maintained elevated , aspiration precautions observed & maintained. Absence of signs of aspiration this shift.
[2019-04-17 04:55] LABS: BASOPHILS % (AUTO) 0.3 % (0.0-2.0); EOSINOPHILS % (AUTO) 0.1 % (0.0-6.0); HEMATOCRIT 39 % (39-51); HEMOGLOBIN 13.9 g/dL (13.5-17.5); LYMPHOCYTES # (AUTO) 0.7 /CMM (0.8-4.8); LYMPHOCYTES % (AUTO) 7.8 % (20.0-44.0); MEAN CORPUSCULAR HGB CONC 36 g/dl (31.0-36.0); MEAN CORPUSCULAR VOLUME 87 fL (80-96); MONOCYTES % (AUTO) 10.8 % (2.0-12.0); NEUTROPHILS # (AUTO) 7.5 /CMM (1.8-8.9); PLATELET COUNT (AUTO) 245 /CMM (150-450); RED BLOOD CELL COUNT(AUTO) 4.44 MIL/uL (4.5-6.0); WHITE BLOOD COUNT (AUTO) 9.2 K/uL (4.3-11.0)
[2019-04-17] MEDS: PHENYTOIN SODIUM IV 50 MG/ML VIAL IV SCH ×3 (04:59→20:21)
[2019-04-17 05:16] LABS: CALCIUM, SERUM 8.7 mg/dL (8.5-10.1); CREATININE 0.7 mg/dL (0.6-1.3); MAGNESIUM 1.8 mg/dL (1.8-2.4); PHOSPHORUS 2.2 mg/dL (2.5-4.9); POTASSIUM 2.9 mmol/L (3.5-5.1)
[2019-04-17] MEDS ORDERED: IV NS 0.9% 500 ML BAG IV ONE (06:00)
[2019-04-17] MEDS: BLOOD SUGAR DIAGNOSTIC 1 EACH STRIP IN SCH ×3 (06:03→17:13)
[2019-04-17] MEDS: INSULIN REGULAR, HUMAN 100 UNIT/ML 3 ML VIAL SQ PRN ×3 (06:15→17:15)
--- NOTE | 2019-04-17 07:15 | NUR ---
POLICE CRIME SCENE TECHNICIAN NOTES RECEIVED BEDSIDE REPORT PATIENT AWAKE AND ALERT.INTUBATED WITH EET TUBES 7.02/04. TOLERATING VENT SETTINGS WELL. RT AT BEDSIDE TO SUCTION. BILATERAL WRIST RESTRAINTS APPLIED WITH CIRCULATION CHECKED. SINUS TACHY 103 ON MONITOR NO C/O PAIN OR SEIZURE ACTIVITY NOTED. GLUCERNA RUNNING @ 65 ML/HR PER GOAL VIA NG TUBE. NO RESIDUALS NOTED. CHUNG CATH DRAINING CLEAR YELLOW URINE . ARCELIA PICC RUNNING NS @ 100 ML/HR RAC # 20 GAUGE SALINE LOCK. SAFETY AND ASPIRATION PRECAUTIONS IN PLACE HOB ELEVATED. BED IN LOW LOCKED POSITION WILL CONT TO MONITOR ACCORDINGLY.
[2019-04-17] MEDS: IV NS 0.9% 1,000 ML IV PRN (07:21)
--- NOTE | 2019-04-17 08:55 | NUR ---
NOTIFIED DR BARRERA IN REGARDS TO PT K+ OF 2.9 ORDERS OBTAINED FOR 60 mEQ POTASSIUM REPLACEMENT
[2019-04-17] MEDS ORDERED: DC PROPOFOL WHEN EXTUBATED XX PRN (09:00)
[2019-04-17] MEDS: LEVETIRACETAM SOL (5 ML) 100 MG/ML UDC NG SCH ×2 (09:14→20:21)
[2019-04-17] MEDS: POTASSIUM CL. PREMIX PERIPHER. 50 ML IV SCH ×6 (09:14→14:00)
[2019-04-17] MEDS: FAMOTIDINE/PF INJ 20 MG/2 ML VIAL IV SCH ×2 (09:14→20:21)
[2019-04-17] MEDS: ENOXAPARIN SODIUM 40 MG/0.4 ML DISP.SYRIN SQ SCH (09:16)
--- NOTE | 2019-04-17 09:37 | NUR ---
PATIENT PLACED ON CPAP PER ORDERS WILL MONITOR AND OBTAIN ABG IN ONE HOUR
[2019-04-17] MEDS ORDERED: POTASSIUM PHOSPHATE MM 5 MMOL in IV D5W 100 ML IV SCH (10:00)
[2019-04-17 10:14] LABS: ABG BASE EXCESS 0.1 mmol/L; ABG OXYGEN SATURATION 96.3 % (92.0-98.5); ABG PCO2 36.1 mmHg (35.0-45.0); ABG PH 7.437 (7.350-7.450); ABG PO2 82.7 mmHg (75.0-100.0); AaDO2 88.8 mmHg; COHb 0.3 % (0.5-1.5); MetHb 0.6 % (0.0-1.5); O2Hb 95.4 % (94.0-97.0); SITE, ABG Right Radial
--- NOTE | 2019-04-17 10:17 | NUR ---
ORDERS FOR EXTUBATION PLACED
--- NOTE | 2019-04-17 10:25 | NUR ---
RT PER DR MORATAYA ORDER PATIENT WAS WEANED AND EXTUBATED PER POLICY HELIO WELL. PLACED ON 3L N/C HELIO WELL. NO SOB AT THIS TIME Addendum: 04/17/19 at 1027 by WILFREDO SAM RT Amended: Links added.
--- NOTE | 2019-04-17 10:26 | NUR ---
PATIENT EXTUBATED WITH NO COMPLICATIONS PLACED ON 3 LTS NASAL CANNULA WILL CONT TO MONITOR
--- NOTE | 2019-04-17 11:00 | NUR ---
BILATERAL WRIST RESTRAINTS REMOVED PATIENT COMPLIANT FAMILY AT BEDSIDE
[2019-04-17] MEDS ORDERED: hydrALAZINE HCL IV 20 MG VIAL IV PRN (13:30)
--- NOTE | 2019-04-17 13:52 | NUR ---
PATIENT S/P EXTUBATION 3.5 HOURS. TOLERATING WELL. NO S/S OF RESPIRATORY DISTRESS SATURATING WELL IN @ 100 % VIA 3 LTRS NASAL CANNULA
[2019-04-17] MEDS: LISINOPRIL (20MG) 20 MG TABLET PO SCH (14:10)
[2019-04-17] MEDS ORDERED: POTASSIUM CL. PREMIX PERIPHER. 50 ML IV SCH (15:30)
--- NOTE | 2019-04-17 15:46 | NUR ---
ST TO EVALUATE PATIENT. PATIENT TOLERATED WELL. RECOMMENDATION OF PUREED DIET. ORDER OBTAINED FROM DR BARRERA TO REMOVE NGT
--- NOTE | 2019-04-17 16:30 | NUR ---
NGT REMOVED NO VOMITING OR BLEEDING NOTED.
--- NOTE | 2019-04-17 18:00 | NUR ---
PATIENT ATE 30% OF DINNER WITH NO N/V OR S/S OF ASPIRATION.
--- NOTE | 2019-04-17 18:18 | NUR ---
MORPHINE 4 MG IVP FOR C/O LOWER BACK PAIN
--- NOTE | 2019-04-17 18:21 | NUR ---
BLENDING SUPERVISOR NOTES PATIENT REMAINED STABLE THROUGHOUT SHIFT AFTER EXTUBATION. NO S/S OF RESPIRATORY DISTRESS SATURATING >98% ON 3 LTRS. A/O X2-3 WITH CONFUSION AT TIMES. SINUS ON MONITOR 80'S-90'S. ARCELIA PICC LINE PATENT WITH GOOD BLOOD RETURN. RAC # 20 GAUGE PATENT SALINE LOCK. CHUNG CATH DRAINING CLEAR YELLOW URINE . SKIN INTACT BILATERAL WRIST RESTRAINTS REMOVED AND NO EPISODES AT PULLING AT LINE BUT 1X TRYING TO CLIMB OUT OF BED . NO EPISODES OF HYPER/HYPOGLYCEMIA . POTASSIUM REPLACED WITH 60mEQ . ST CLEARED FOR PUREE DIET CONSUMED 30% DINNER. FAMILY AT BEDSIDE AND INVOLVED IN CARE. SAFETY ASPIRATION AND SEIZURE PRECAUTIONS IN PLACE. BED IN LOW LOCKED POSITION. WILL ENDORSE TO NOC
--- NOTE | 2019-04-17 19:09 | NUR ---
REPORT ENDORSED TO NOC
[2019-04-18] VITALS (22 sets, daily range): BP systolic 138–157; BP diastolic 70–98
[2019-04-18] MEDS: BLOOD SUGAR DIAGNOSTIC 1 EACH STRIP IN SCH ×4 (00:50→17:22)
[2019-04-18] MEDS: INSULIN REGULAR, HUMAN 100 UNIT/ML 3 ML VIAL SQ PRN ×4 (01:01→17:21)
[2019-04-18 04:53] LABS: BASOPHILS % (AUTO) 0.2 % (0.0-2.0); EOSINOPHILS % (AUTO) 0.1 % (0.0-6.0); HEMATOCRIT 38 % (39-51); HEMOGLOBIN 13.6 g/dL (13.5-17.5); LYMPHOCYTES % (AUTO) 12.6 % (20.0-44.0); MEAN CORPUSCULAR HGB CONC 36 g/dl (31.0-36.0); MEAN CORPUSCULAR VOLUME 87 fL (80-96); MONOCYTES # (AUTO) 0.8 /CMM (0.1-1.30); MONOCYTES % (AUTO) 10.7 % (2.0-12.0); NEUTROPHILS # (AUTO) 5.9 /CMM (1.8-8.9); NEUTROPHILS % (AUTO) 76.4 % (43.0-81.0); PLATELET COUNT (AUTO) 247 /CMM (150-450); RED BLOOD CELL COUNT(AUTO) 4.37 MIL/uL (4.5-6.0); WHITE BLOOD COUNT (AUTO) 7.8 K/uL (4.3-11.0)
[2019-04-18] MEDS: PIPERACILLIN /TAZOBACTAM 3.375 G in IV D5W 100 ML IV SCH ×2 (05:02→12:38)
[2019-04-18] MEDS: PHENYTOIN SODIUM IV 50 MG/ML VIAL IV SCH ×2 (05:02→12:38)
[2019-04-18 05:04] LABS: CALCIUM, SERUM 8.6 mg/dL (8.5-10.1); CREATININE 0.6 mg/dL (0.6-1.3); MAGNESIUM 1.7 mg/dL (1.8-2.4); PHOSPHORUS 2.7 mg/dL (2.5-4.9)
--- NOTE | 2019-04-18 06:37 | NUR ---
PT REMAINS IN NO ACUTE DISTRESS IN BED. PT DID NOT HAVE ANY SIGNIFICANT CHANGE IN CONDITION DURING SHIFT. ALL NEEDS MET, ALL ORDERS CARRIED OUT. PT IS MORE ALERT NOW THEN AT THE BEGINNING OF SHIFT. AT THE BEGINNING OF SHIFT. PT IS A/O X 1-2. NOW PT IS A/O X 3. ALL NEEDS MET, ALL ORDERS CARRIED OUT. PT TOLERATED O2 @ 3LPM VIA NC WELL WITH O2 SAT @ 98%. PT IS S/P EXTUBATION @ 1300. WILL ENDORSE CARE TO AM RN FOR CONTINUITY OF CARE.
--- NOTE | 2019-04-18 07:00 | NUR ---
RN NOTES RECEIVED ON BED, A/Ox3,PT DENIES ANY SUICIDAL IDEATION OR SUICIDAL PLAN, ON 3L O2 N/C , O2 SAT 97%, NO SOB NOTED, ON TELE SR HR IN 70'S, CHUNG DRAINING TO GRAVITY,R UPPER ARM PICC LINE SITE CLEAN, DRY AND INTACT, SR UP x3, CALL LIGHT WITHIN EASY REACH, BED LOCKED AND IN LOWEST POSITION,
[2019-04-18] MEDS: POTASSIUM CL. PREMIX PERIPHER. 50 ML IV SCH ×4 (08:20→11:32)
[2019-04-18] MEDS: FAMOTIDINE/PF INJ 20 MG/2 ML VIAL IV SCH ×2 (08:21→22:19)
[2019-04-18] MEDS: LEVETIRACETAM SOL (5 ML) 100 MG/ML UDC NG SCH ×2 (08:21→22:19)
[2019-04-18] MEDS: LISINOPRIL (20MG) 20 MG TABLET PO SCH (08:21)
[2019-04-18] MEDS: ENOXAPARIN SODIUM 40 MG/0.4 ML DISP.SYRIN SQ SCH (08:22)
[2019-04-18] MEDS: Magnesium 1GM/D5W 100ML PREMIX 100 ML IV SCH ×2 (10:13→11:33)
--- NOTE | 2019-04-18 10:30 | NUR ---
RN NOTES PT OUT OF BED , AMBULATING WITH PT , VSS STABLE, CONTINUE TO MONITOR
--- NOTE | 2019-04-18 12:00 | NUR ---
RN NOTES SUPPORTIVE FAMILY AT THE BEDSIDE, VSS STABLE , CONTINUE TO MONITOR .
[2019-04-18] MEDS ORDERED: FEE PK DOSING 1 MIN EA MC ONE (14:42)
[2019-04-18] MEDS: VANCOMYCIN 1.25 GM in IV D5W 500 ML IV SCH (15:21)
[2019-04-18] MEDS: VENLAFAXINE XR 150 MG CAP.SR.24H PO SCH (16:19)
--- NOTE | 2019-04-18 18:00 | NUR ---
RN NOTES PT ON RA , O2 SAT 97%, NO SOB NOTED, PT SITTING ON THE EDGE OF THE BED EATING DINNER , TOLERATING WELL, VSS STABLE, NO SIGNIFICANT CHANGES NOTED ON THIS SHIFT, WILL ENDOSE TO SUSTAINABLE AGRICULTURE FACULTY NURSE FOR CONTINUITY OF CARE.
--- NOTE | 2019-04-18 19:30 | NUR ---
PATIENT CARE PROVIDER NOTE REPORT GIVEN BEDSIDE. PATIENT IN BED A/O X 4. PATIENT HAS NO S/S OF RESP DISTRESS. DISCUSSED WITH PATIENT PLAN FOR TRANSFER TO TELEMETRY. PATIENT VERBALIZES UNDERSTANDING. PATIENT DENIES CHEST PAIN/ SOB/ . NO ACUTE S/S OF DISTRESS. PATIENT IV ACCESS PATENT INTACT NO S/S OF INFECTION INFILTRATION. PATIENT HAS CHUNG DRAINING TO GRAVITY.
--- NOTE | 2019-04-18 19:50 | NUR ---
CASH POSTING REPRESENTATIVE NOTE REPORT GIVEN TO CB RN , PATIENT GOING TO 328-2.
--- NOTE | 2019-04-18 20:00 | NUR ---
SHEAR GRINDER OPERATOR HELPER NOTE PATIENT SUCCESSFULLY TRANSFERRED. TRANSFER OF CARE GIVEN OVER TO CB RN
--- NOTE | 2019-04-18 20:08 | NUR ---
ENSEMBLE MEMBER NOTES RECEIVED PATIENT, TRANSFERRED FROM ICU, ALERT ORIENTED X3, NO SIGNS OD ACUTE CARDIAC AND RESPIRATORY DISTRESS NOTED, BREATHING EVEN AND NON LABORED ON RA, VITAL SIGNS TAKEN AND RECORDED, REPOSITIONED FOR COMFORT, ON CONTACT ISOLATION - MRSA NARES, SAFETY MEASURES IN PLACED, ORIENTED TO UNIT AND USE OF CALL LIGHT, ASPIRATION PRECAUTION EMPHASIZED, IV ACCESS, R UA PICC AND R AC G#20 INTACT AND PATENT. CHUNG CATHETER INTACT AND PATENT DRAINING TO A YELLOW URINE OUTPUT, ALL NEEDS ATTENDED, WILL CONTINUE TO MONITOR ACCORDINGLY.
--- NOTE | 2019-04-18 21:27 | NUR ---
RN NOTES PATIENT'S SISTER IN[place] CALLED, UPDATED REGARDING PT'S CURRENT CONDITION
[2019-04-18] MEDS ORDERED: PHENYTOIN SODIUM IV 50 MG/ML VIAL ONE (22:05)
--- NOTE | 2019-04-18 22:15 | NUR ---
REVERSING MILL ROLLER NOTES PATIENT'S EX- AND A FRIEND CAME IN, PATIENT IS RESTING CALMLY AT THIS TIME.
[2019-04-18] MEDS: ARIPIPRAZOLE 5 MG TABLET PO SCH (22:19)
[2019-04-19] VITALS (7 sets, daily range): BP systolic 134–150; BP diastolic 68–86
[2019-04-19] MEDS: BLOOD SUGAR DIAGNOSTIC 1 EACH STRIP IN SCH ×4 (00:47→17:27)
[2019-04-19] MEDS: INSULIN REGULAR, HUMAN 100 UNIT/ML 3 ML VIAL SQ PRN ×4 (01:11→17:31)
[2019-04-19] MEDS ORDERED: diphenhydrAMINE HCL 25 MG CAPSULE PO ONE (01:30)
--- NOTE | 2019-04-19 03:25 | NUR ---
SPRAY GUN REPAIRER NOTES PATIENT AGITATED, PULLING CHUNG CATH, RESTLESS, INFORMED MD IRWIN, TO GIVE ATIVAN 1MG IV Q8 PRN FOR AGITATION AND BILATERAL SOFT WRIST RESTRAINTS. ORDERS NOTED AND CARRIED OUT.
[2019-04-19] MEDS: VANCOMYCIN 1.25 GM in IV D5W 500 ML IV SCH ×2 (04:05→16:06)
--- NOTE | 2019-04-19 05:30 | NUR ---
RN NOTES PATIENT IS INCREASINGLY AGITATED, SPITTING, KICKING AND MANAGED TO REMOVED HIS WRIST RESTRAINTS, DR IRWIN ORDERED HALDOL 5MG IM Q4 PRN. PATIENT TELE MONITOR READS SINUS 70s, WILL MONITOR.
[2019-04-19] MEDS ORDERED: PHENYTOIN SODIUM IV 50 MG/ML VIAL ONE (05:38)
[2019-04-19] MEDS: PHENYTOIN SODIUM IV 50 MG/ML VIAL IV SCH ×3 (05:45→20:59)
[2019-04-19] MEDS ORDERED: HALOPERIDOL LACTATE INJ 5 MG/ML VIAL IM PRN (06:00)
--- NOTE | 2019-04-19 07:02 | NUR ---
RN NOTES ALL NEEDS ATTENDED AND MET, ON BILATERAL SOFT WRIST RESTRAINTS, PATIENT IS RESTING COMFORTABLY AT THIS TIME, SAFETY MEASURES IN PLACE, BED IN LOW LOCKED POSITION, WILL ENDORSE TO AM NURSE FOR CONTINUITY OF CARE.
--- NOTE | 2019-04-19 07:42 | NUR ---
BRASS BUFFER OPENING NOTES PATIENT IN BED SLEEPING COMFORTABLY. PATIENT IN NO ACUTE DISTRESS. NO SOB NOTED. PATIENT BREATHING IS EVEN AND UNLABORED. PATIENT HAS SOFT BILATERAL WRIST RESTRAINTS. BED IS LOCKED AND IN LOWEST POSITION. SAFETY PRECAUTIONS IN PLACE. CALL LIGHT WITHIN REACH. PATIENT MAINTAINED ON CONTACT PRECAUTIONS. WILL CONTINUE TO MONITOR.
[2019-04-19 08:32] LABS: CALCIUM, SERUM 8.4 mg/dL (8.5-10.1); CREATININE 0.6 mg/dL (0.6-1.3); MAGNESIUM 1.8 mg/dL (1.8-2.4); POTASSIUM 3.2 mmol/L (3.5-5.1)
--- NOTE | 2019-04-19 08:44 | NUR ---
RN NOTE PATIENT SEEN AND EVALUATED BY DR. OSEGUERA. ORDERS FROM MD TO DC CHUNG CATHETER. WILL CONTINUE TO MONITOR.
[2019-04-19] MEDS: LEVETIRACETAM SOL (5 ML) 100 MG/ML UDC NG SCH ×2 (09:18→21:00)
[2019-04-19] MEDS: VENLAFAXINE XR 150 MG CAP.SR.24H PO SCH (09:18)
[2019-04-19] MEDS: FAMOTIDINE/PF INJ 20 MG/2 ML VIAL IV SCH ×2 (09:18→20:59)
[2019-04-19] MEDS: LISINOPRIL (20MG) 20 MG TABLET PO SCH (09:19)
[2019-04-19] MEDS: ENOXAPARIN SODIUM 40 MG/0.4 ML DISP.SYRIN SQ SCH (09:21)
[2019-04-19] MEDS: POTASSIUM CL. PREMIX PERIPHER. 50 ML IV SCH ×4 (12:14→15:14)
--- NOTE | 2019-04-19 13:25 | NUR ---
MS RN NOTE FOLLOWED UP WITH PHARMACY REGARDING DILANTIN IV DOSE THAT WAS MISSED AT 0500 FROM CONFERENCE COORDINATOR, ACCORDING TO THE EMAR. BUT ACCORDING TO PHARMACY IT WAS GIVEN BY CONFERENCE COORDINATOR NURSE, DOSE WAS CHECKED OUT FROM ICU ACCORDING TO PHARMACY. TOLD BY PHARMACY ONLY NIGHT NURSE CAN FIX MED ADMINISTRATION ISSUE IT WAS ON NIGHT NURSES SHIFT. INSTRUCTED TO LEAVE IS AND CONTINUE WITH FOLLOWING DOSES SCHEDULED. PATIENT IN NO ACUTE DISTRESS. WILL CONTINUE TO MONITOR.
--- NOTE | 2019-04-19 19:07 | NUR ---
MS RN CLOSING NOTE PATIENT IN BED RESTING COMFORTABLY. PATIENT IN NO ACUTE DISTRESS. NO SOB NOTED. PATIENT BREATHING ON ROOM AIR SATURATING >95% SPO2. PATIENT NEEDS AND CONCERNS VERBALIZED. NEEDS AND CONCERNS ADDRESSED. PATIENT MAINTAINED ON CONTACT ISOLATION. ALL NURSING NEEDS MET. PATIENT KEPT CLEAN, DRY, AND COMFORTABLE. EXTREMITIES OFFLOADED AND REPOSITIONED. PATIENT BED IS LOCKED AND IN LOWEST POSITION. CALL LIGHT WITHIN REACH. WILL ENDORSE CARE TO PM SHIFT FOR KYREE.
--- NOTE | 2019-04-19 19:52 | NUR ---
RN MS OPENING NOTES RECEIVED PATIENT IN BED AWAKE, ALERT AND ORIENTED X3, VERBALLY RESPONSIVE, ABLE TO MAKE NEEDS KNOWN. BREATHING EVEN AND UNLABORED. NO SOB NOTED. TOLERATING ROOM AIR. CURRENTLY WITH NO COMPLAINTS OF PAIN OR DISCOMFORT. NO FACIAL GRIMACING. RIGHT UPPER ARM PICC LINE INTACT AND PATENT. SKIN DRY AND WARM TO TOUCH. AFEBRILE. PATIENT WITH BILATERAL WRIST RESTRAINTS CURRENTLY OFF. PATIENT IS CALM AND FOLLOWS DIRECTIONS. PATIENT CAN ALSO STAND WITH STEADY GAIT. WILL CONTINUE TO MONITOR FOR NEED FOR RESTRAINTS. ALL OTHER NEEDS ATTENDED. PROVIDED URINAL. SAFETY MEASURES IN PLACE. CALL LIGHT WITHIN REACH.
[2019-04-19] MEDS: ARIPIPRAZOLE 5 MG TABLET PO SCH (21:01)
[2019-04-19] MEDS ORDERED: diphenhydrAMINE HCL ELIX 25 MG/10 ML UDC PO PRN (23:42)
--- NOTE | 2019-04-19 23:52 | NUR ---
RN MS NOTES PATIENT REQUESTED FOR SLEEPING PILL. NO SLEEPING PILL IN PATIENT'S EMAR. INFORMED DR. IRWIN REGARDING PATIENT'S REQUEST WITH ORDERS FOR BENADRYL 25MG PO QHS PRN. ORDER NOTED AND CARRIED OUT. WILL CONTINUE TO MONITOR.
[2019-04-19] MEDS: diphenhydrAMINE HCL 25 MG CAPSULE PO PRN (23:58)
[2019-04-20] MEDS: BLOOD SUGAR DIAGNOSTIC 1 EACH STRIP IN SCH ×4 (00:02→18:09)
[2019-04-20] MEDS: INSULIN REGULAR, HUMAN 100 UNIT/ML 3 ML VIAL SQ PRN ×4 (00:06→18:11)
--- NOTE | 2019-04-20 01:15 | NUR ---
RN MS NOTES PATIENT NOTED WITH PANTS AND SHOES ON AND NO GOWN. ENCOURAGED PATIENT TO WEAR GOWN INSTEAD BUT PATIENT REFUSED. PER PATIENT, HE FEELS "COMFORTABLE" THAT WAY.
[2019-04-20] MEDS: VANCOMYCIN 1.25 GM in IV D5W 500 ML IV SCH (03:31)
[2019-04-20] MEDS: PHENYTOIN SODIUM IV 50 MG/ML VIAL IV SCH ×3 (05:24→20:44)
--- NOTE | 2019-04-20 05:51 | NUR ---
RN MS NOTES PATIENT NOTED WITH BUTTOCKS REDNESS. WAS NOT CHARTED SINCE ADMISSION. PATIENT INDEPENDENT WITH BED MOBILITY. CONTINENT TO BOWEL AND BLADDER. USES URINAL. KEPT CLEAN AND DRY. APPLIED ZGUARD. WOUND CARE CONSULT REQUESTED. WILL CONTINUE TO MONITOR.
--- NOTE | 2019-04-20 05:55 | NUR ---
RN MS NOTES PATIENT'S RESTRAINTS NOT RENEWED. PATIENT IS CALM. NOT PULLING OR BITING ANY LINES. COOPERATIVE THROUGHOUT SHIFT. WILL CONTINUE TO MONITOR.
--- NOTE | 2019-04-20 06:53 | NUR ---
RN MS CLOSING NOTES PATIENT RESTING IN BED. NOT IN ANY DISTRESS. BREATHING EVEN AND UNLABORED. NO SOB NOTED. TOLERATING ROOM AIR. NO COMPLAINTS OF PAIN OR DISCOMFORT. RIGHT UPPER ARM PICC LINE INTACT AND PATENT. KEPT CLEAN DRY AND COMFORTABLE. ALL OTHER NEEDS ATTENDED TO. SAFETY MEASURES IN PLACE. SEIZURE PRECAUTIONS OBSERVED. CALL LIGHT WITHIN REACH. WILL ENDORSE TO ONCOMING NURSE FOR KYREE.
[2019-04-20 06:55] LABS: CALCIUM, SERUM 8.9 mg/dL (8.5-10.1); CREATININE 0.8 mg/dL (0.6-1.3)
--- NOTE | 2019-04-20 07:30 | NUR ---
RN MS NOTES PT IN BED, AWAKE, ALERT AND ORIENTED, NO COMPLAINT OF PAIN, RESPIRATIONS NORMAL, CALL LIGHT WITHIN REACH, AMBULATES IN THE ROOM WITH STEADY GAIT, SAFETY PRECAUTIONS OBSERVED, COMPLIANT WITH MEDS AND INTERVENTIONS, NEEDS ATTENDED.
[2019-04-20 08:00] VITALS: BP 129/80
[2019-04-20] MEDS ORDERED: POTASSIUM CHLORIDE 20 MEQ TAB.PRT.SR PO ONE (08:00)
[2019-04-20] MEDS: LEVETIRACETAM SOL (5 ML) 100 MG/ML UDC NG SCH ×2 (08:30→20:45)
[2019-04-20] MEDS: LISINOPRIL (20MG) 20 MG TABLET PO SCH (08:30)
[2019-04-20] MEDS: VENLAFAXINE XR 150 MG CAP.SR.24H PO SCH (08:30)
[2019-04-20] MEDS: FAMOTIDINE/PF INJ 20 MG/2 ML VIAL IV SCH ×2 (08:30→20:44)
[2019-04-20] MEDS: ENOXAPARIN SODIUM 40 MG/0.4 ML DISP.SYRIN SQ SCH (08:37)
--- NOTE | 2019-04-20 13:00 | NUR ---
RN MS NOTES PT IN BED, AWAKE, ALERT AND ORIENTED, ABLE TO WALK WITH STEADY GAIT IN THE ROOM, SEEN BY DR. OSEGUERA IN THE MORNING, PT VISITED BY BROTHER VIC, PT COMPLIANT WITH MEDS AND INTERVENTIONS, SAFETY PRECAUTIONS OBSERVED, ISOLATION PRECAUTIONS OBSERVED, NEEDS ATTENDED.
[2019-04-20 15:45] VITALS: BP 123/71
--- NOTE | 2019-04-20 18:35 | NUR ---
RN MS NOTES PT IN BED, ASLEEP, EASY TO AROUSE, ALERT AND ORIENTED, CALM AND COOPERATIVE WITH CARE, PM CARE PROVIDED, SAFETY PRECAUTIONS OBSERVED, CALL LIGHT WITHIN REACH, NEEDS ATTENDED.
[2019-04-20 20:00] VITALS: BP 134/75
[2019-04-20] MEDS: diphenhydrAMINE HCL 25 MG CAPSULE PO PRN (20:45)
[2019-04-20] MEDS: ARIPIPRAZOLE 5 MG TABLET PO SCH (21:08)
[2019-04-20] MEDS: MORPHINE SULFATE INJ 2 MG/ML DISP.SYRIN IV PRN (21:11)
[2019-04-21] MEDS: BLOOD SUGAR DIAGNOSTIC 1 EACH STRIP IN SCH ×5 (00:11→23:08)
[2019-04-21] MEDS: INSULIN REGULAR, HUMAN 100 UNIT/ML 3 ML VIAL SQ PRN ×5 (00:13→23:18)
[2019-04-21] MEDS: PHENYTOIN SODIUM IV 50 MG/ML VIAL IV SCH ×3 (05:33→20:30)
[2019-04-21 06:39] LABS: CALCIUM, SERUM 8.5 mg/dL (8.5-10.1); CREATININE 0.6 mg/dL (0.6-1.3); POTASSIUM 3.1 mmol/L (3.5-5.1)
--- NOTE | 2019-04-21 06:40 | NUR ---
MS RN NOTES AWAKE & RESPONSIVE. NOT IN ANY DISTRESS. NO SOB NOTED. DENIES ANY PAIN OR DISCOMFORT AT THIS TIME. WITH PICC LINE PATENT & INTACT. MONITORED ACCORDINGLY. CALL LIGHT WITHIN REACH. BED IN LOWEST POSITION. SR UP X2 FOR SAFETY. WILL ENDORSE TO NEXT SHIFT.
--- NOTE | 2019-04-21 07:13 | NUR ---
MS RN OPENING NOTES RECEIVED PT AWAKE IN BED IN NO ACUTE SIGNS OF DISTRESS. A/O X3. VERBALLY RESPONSIVE, DENIES PAIN OR ANY DISCOMFORTS VOICED AT THIS TIME. CONTACT PRECAUTIONS FOR MRSA MAINTAINED. ON ROOM AIR, BREATHING EVEN AND UNLABORED. ARCELIA PICC LINE INTACT AND PATENT. SAFETY MEASURES IN PLACE . BED IN LOW LOCKED POSITION WITH SR UP X3. CALL LIGHT WITHIN REACH. WILL CONTINUE TO MONITOR ACCORDINGLY.
[2019-04-21 08:06] VITALS: BP 135/63
[2019-04-21] MEDS: LEVETIRACETAM SOL (5 ML) 100 MG/ML UDC NG SCH ×2 (08:27→20:30)
[2019-04-21] MEDS: FAMOTIDINE/PF INJ 20 MG/2 ML VIAL IV SCH ×2 (08:27→20:30)
[2019-04-21] MEDS: LISINOPRIL (20MG) 20 MG TABLET PO SCH (08:27)
[2019-04-21] MEDS: VENLAFAXINE XR 150 MG CAP.SR.24H PO SCH (08:27)
[2019-04-21] MEDS: ENOXAPARIN SODIUM 40 MG/0.4 ML DISP.SYRIN SQ SCH (08:29)
[2019-04-21] MEDS ORDERED: POTASSIUM CHLORIDE 20 MEQ TAB.PRT.SR PO ONE (08:30)
--- NOTE | 2019-04-21 12:11 | NUR ---
RN NOTES PT WITH LOW LEVEL POTASSIUM 3.1 THIS MORNING. ADMINISTERED KDUR 40MEQ PO PER MD ORDER. WILL CONTINUE TO MONITOR.
[2019-04-21] MEDS: LORAZEPAM INJ 2 MG/ML VIAL IV PRN ×2 (14:44→22:43)
--- NOTE | 2019-04-21 14:52 | NUR ---
RN NOTES PATIENT NOTED ANXIOUS AND BROTHER AT BEDSIDE OBI REQUESTED MEDICATION FOR ANXIETY. PRN ATIVAN 1MG/0.5ML IVP ADMINISTERED AT 1444. WILL CONTINUE TO MONITOR PT.
[2019-04-21 16:08] VITALS: BP 108/54
--- NOTE | 2019-04-21 18:56 | NUR ---
RN NOTES CALLED AND SPOKE TO CAR WASHER ROSEY OLMSTEAD AND SAID THAT PT WILL NOT BE DISCHARGED TONIGHT BUT TOMORROW. SHE SAID THAT SHE WILL F/U PLACEMENT TOMORROW. CHARGE NURSE MICHELLE MADE AWARE.
--- NOTE | 2019-04-21 19:28 | NUR ---
MS RN CLOSING NOTES PT IN HIS ROOM SITTING IN CHAIR BY BEDSIDE. A/O X3. VERBALLY RESPONSIVE. NOTED WITH PERIOD OF FORGETFULNESS AT TIMES. 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 ON ROOM AIR, BREATHING EVEN AND UNLABORED. TRIPLE LUMEN ARCELIA PICC LINE INTACT, PATENT AND FLUSHES WELL. ALL NEEDS NA CARE ATTENDED WELL. SAFETY MEASURES IN PLACE . BED IN LOW LOCKED POSITION WITH SR UP X3. CALL LIGHT WITHIN. ENDORSED TO SCHOOL BUS MONITOR NURSE FOR KYREE..
--- NOTE | 2019-04-21 19:50 | NUR ---
MS RN NOTE: PATIENT RESTING IN BED, NO ACUTE DISTRESS NOTED. BREATHING EVEN AND UNLABORED, NO SOB NOTED. PICC LINE TO ARCELIA IN PLACE. NO S/S OF HYPO/HYPERGLYCEMIA NOTED. ISOLATION PRECAUTIONS OBSERVED. BED LOCKED AND IN LOWEST POSITION, CALL LIGHT IN REACH. WILL CONTINUE TO MONITOR.
[2019-04-21 20:00] VITALS: BP 111/60
[2019-04-21] MEDS: diphenhydrAMINE HCL 25 MG CAPSULE PO PRN (20:30)
[2019-04-21] MEDS: ARIPIPRAZOLE 5 MG TABLET PO SCH (22:43)
--- NOTE | 2019-04-21 23:05 | NUR ---
MS RN NOTE: PATIENT BLOOD SUGAR LEVEL 245MG/DL, PATIENT REFUSED INSULIN PER SLIDING SCALE. PATIENT STATES THAT HE JUST FINISHED EATING SANDWICH, SNACKS AND JUICE. DENIES S/S OF HYPER/HYPOGLYCEMIA AT THIS TIME. PATIENT REQUESTED FOR ANXIETY MEDICATION. ATIVAN 1MG IV GIVEN PER MD ORDER. WILL CONTINUE TO MONITOR.
--- NOTE | 2019-04-22 06:30 | NUR ---
MS RN NOTE: PATIENT RESTING IN BED, NO ACUTE DISTRESS NOTED. BREATHING EVEN AND UNLABORED, NO SOB NOTED. PICC LINE TO ARCELIA IN PLACE. PATIENT BLOOD SUGAR LEVEL 196MG/DL, PATIENT REFUSES INSULIN, STATES HE DOESN'T TAKE INSULIN. NO S/S OF HYPO/HYPERGLYCEMIA NOTED. ISOLATION PRECAUTIONS OBSERVED. BED LOCKED AND IN LOWEST POSITION, CALL LIGHT IN REACH. WILL ENDORSE TO DAY NURSE TO CONTINUE WITH PLAN OF CARE.
[2019-04-22] MEDS: BLOOD SUGAR DIAGNOSTIC 1 EACH STRIP IN SCH ×2 (06:33→11:37)
[2019-04-22] MEDS: INSULIN REGULAR, HUMAN 100 UNIT/ML 3 ML VIAL SQ PRN ×3 (06:34→15:07)
[2019-04-22 06:43] LABS: CALCIUM, SERUM 8.1 mg/dL (8.5-10.1); CREATININE 0.7 mg/dL (0.6-1.3); POTASSIUM 3.6 mmol/L (3.5-5.1)
--- NOTE | 2019-04-22 07:41 | NUR ---
M/S RN OPENING NOTES RECEIVED PATIENT ON BED, A/O X 4 AND ABLE TO MAKE NEEDS KNOWN. RESPIRATION EVEN AND NON LABORED WITH PRESENCE OF ACUTE RESPIRATORY DISTRESS. ABDOMEN SOFT AND NON DISTENDED WITH ACTIVE BOWEL SOUNDS. COMPLAIN OF LOWER BACK PAIN SCALE OF 6/10. SKIN WARM TO TOUCH AND DRY. IV SITE AT RIGHT UPPER ARM WITH NO S/SX OF INFILTRATION. ON ISOLATION FOR MRSA SPUTUM. ALL CONCERNS ADDRESSED, CALL LIGHT WITHIN REACH. WILL CONTINUE TO EVALUATE CARE.
[2019-04-22 08:00] VITALS: BP 147/78
[2019-04-22 08:19] VITALS: BP 147/78
[2019-04-22] MEDS: VENLAFAXINE XR 150 MG CAP.SR.24H PO SCH (08:19)
[2019-04-22] MEDS: PHENYTOIN SODIUM IV 50 MG/ML VIAL IV SCH (08:19)
[2019-04-22] MEDS: LEVETIRACETAM SOL (5 ML) 100 MG/ML UDC NG SCH (08:19)
[2019-04-22] MEDS: LISINOPRIL (20MG) 20 MG TABLET PO SCH (08:19)
[2019-04-22] MEDS: FAMOTIDINE/PF INJ 20 MG/2 ML VIAL IV SCH (08:19)
[2019-04-22] MEDS: MORPHINE SULFATE INJ 2 MG/ML DISP.SYRIN IV PRN (08:20)
[2019-04-22] MEDS: ENOXAPARIN SODIUM 40 MG/0.4 ML DISP.SYRIN SQ SCH (08:21)
--- NOTE | 2019-04-22 08:55 | NUR ---
M/S RN NOTES PICC LINE CLOGGED. DR. OSEGUERA NOTIFIED WITH NEW ORDER TO CHANGE PHENYTOIN AND FAMOTIDINE IV PUSH TO PO, MORPHINE CHANGED TO NORCO 5/325 MG 1 TAB PO Q6 PRN FOR PAIN ORDERED. ORDER READ BACK, NOTED AND CARRIED OUT. WASTED IV PUSH MEDICATION AND NOT ADMINISTERED. PATIENT NOTIFIED.
[2019-04-22] MEDS ORDERED: HYDROCODONE/APAP 5/325MG 1 EACH TABLET PO PRN (09:00)
[2019-04-22] MEDS ORDERED: FAMOTIDINE (20 MG) 20 MG TABLET PO SCH (09:00)
[2019-04-22] MEDS ORDERED: PHENYTOIN EXTENDED RELEASE 100 MG CAPSULE PO SCH (09:00)
--- NOTE | 2019-04-22 09:12 | NUR ---
M/S RN NOTES PT SEEN BY DR. OSEGUERA.
--- NOTE | 2019-04-22 09:17 | NUR ---
M/S RN NOTES PHENYTOIN 100MG/2ML, FAMOTIDINE 20MG/2ML AND MORPHINE 4MG/ML WASTED WITNESSED BY CLAUDE BARAHONA.
--- NOTE | 2019-04-22 09:48 | NUR ---
M/S RN NOTES REMOVED RIGHT UPPER PICC LINE PER MD ORDER. PT TOLERATED WELL. SITE NO S/SX OF INFECTION, NO BLEEDING NOTED. PT DENIES PAIN OR TENDERNESS ON SITE.
--- NOTE | 2019-04-22 14:16 | NUR ---
M/S RN NOTES PER DR. OUMAR VENTURA WITH NEW ORDER TO D/C ISOLATION - MRSA ALREADY COLONIZED. DC PATIENT TO [facility] [phone]. BROTHER WILL TAKE PATIENT TO SNF.
--- NOTE | 2019-04-22 14:45 | NUR ---
M/S RN NOTES GAVE REPORT TO LYNN BARAHONA AT [facility].
--- NOTE | 2019-04-22 15:07 | NUR ---
M/S SPANISHER NOTES PATIENT DISCHARGE TO [facility] AT ROOM 314 -B. GIVEN REPORT TO LYNN RN. CHECKED BLOOD SUGAR WITH 208 - 6 UNITS ADMINISTERED ORDERED. PATIENT A/OX4 WITH EPISODES OF FORGETFULNESS, ALERT MOST OF THE TIME. RESPIRATION EVEN AND NON LABORED WITH NO ACUTE RESPIRATORY DISTRESS, ROOM AIR SATING 100%. ABDOMEN SOFT AND NON DISTENDED WITH ACTIVE BOWEL SOUNDS. LBM 04/21/19. SKIN WARM TO TOUCH, DRY AND INTACT. PATIENT REFUSED TO TAKE PHOTOS OF BUTTOCKS REDNESS PRESENT INITIALLY STATED THEY TOOK ONE YESTERDAY, ASSESSED VERY LIGHT PINK ON SITE WITH NO OPEN SKIN BREAKDOWN. PATIENT DENIES PAIN AND DISCOMFORT AFTER ADMINISTERING NORCO ORDERED IN AM. ID BAND REMOVED. EXIT CARE PROVIDED TO PATIENT, GAVE DISCHARGE PAPERS. ALL CONCERNS ADDRESSED. DISCHARGE WITH BROTHER VIC IN PRIVATE CAR TO SNF, IN STABLE CONDITION. [facility] IN SAFE CONDITION WHEELED OUT BY ESTEAL Ochoa
== END 2019-04-22 15:10 | DRG 812 ==
LOC: ER 05:28 → ICU 07:54 → TELE 04-18 19:56 → MED 04-19 11:51
PROVIDERS: ADMIT Nurse Practitioner Acute Care; ATTEND Nurse Practitioner Acute Care
PROC: 02HV33Z Insertion of Infusion Device into Superior Vena Cava, Percutaneous Approach (ICD-10-PCS; principal; 2019-04-12)
PROC: 0BH17EZ Insertion of Endotracheal Airway into Trachea, Via Natural or Artificial Opening (ICD-10-PCS; principal; 2019-04-12)
PROC: B548ZZA Ultrasonography of Superior Vena Cava, Guidance (ICD-10-PCS; principal; 2019-04-12)
PROC: 5A1955Z Respiratory Ventilation, Greater than 96 Consecutive Hours (ICD-10-PCS; principal; 2019-04-12)
DX: T50.992A Poisoning by other drugs, medicaments and biological substances, intentional self-harm, initial encounter (principal); I21.A1 Myocardial infarction type 2; J96.01 Acute respiratory failure with hypoxia; N17.0 Acute kidney failure with tubular necrosis; R65.21 Severe sepsis with septic shock; J69.0 Pneumonitis due to inhalation of food and vomit; A41.9 Sepsis, unspecified organism; G92 Toxic encephalopathy; G93.1 Anoxic brain damage, not elsewhere classified; Y92.89 Other specified places as the place of occurrence of the external cause; K92.2 Gastrointestinal hemorrhage, unspecified; J98.11 Atelectasis; I25.2 Old myocardial infarction; I10 Essential (primary) hypertension; G40.409 Other generalized epilepsy and epileptic syndromes, not intractable, without status epilepticus; F33.2 Major depressive disorder, recurrent severe without psychotic features; F41.9 Anxiety disorder, unspecified; F12.90 Cannabis use, unspecified, uncomplicated; E87.6 Hypokalemia; E86.1 Hypovolemia; E78.5 Hyperlipidemia, unspecified; E87.2 Acidosis; E87.0 Hyperosmolality and hypernatremia
CPT/HCPCS: 31720; 36415; 36569; 36600; 70450-TC; 71045-TC; 80048-TC; 80053-TC; 80061-TC; 80076-TC; 80175; 80185-TC; 80305; 81000-TC; 82140-TC; 82550-TC; 82803-TC; 82962-TC; 83605-TC; 83735-TC; 84100-TC; 84484-TC; 85025-TC; 85027-TC; 85730-TC; 87040-TC; 87070-TC; 87081-TC; 87086-TC; 87806; 92526; 92611-TC; 93307-TC; 94002-TC; 94003-TC; 94799-TC; 95819-TC; 97110-TC; 97116-TC; 97530-TC; 99082-TC; A4216; A4349; C1751; C1769; G0378; G0480; J0330; J1165; J1630; J1650; J1815; J1953; J2060; J2270; J2310; J2543; J3370; J3475; J3480; J3490; J7030; J7040; J7050; J7060; Q0163